=== PATIENT | male | born 1980 | race Two or more races ===

== ENCOUNTER 2023-01-09 23:21 | Emergency (ER) | payer BC ==
[~2023-01-09] VITALS: Ht 172.7 cm; Wt 86.4 kg
[2023-01-09 23:30] VITALS: BP 126/79
[2023-01-10 00:40] LABS: EOSINOPHILS % (AUTO) 0.1 % (1.0-6.0); HEMATOCRIT 45.5 % (41-53); HEMOGLOBIN 14.9 g/dL (13.5-17.5); LYMPHOCYTES # (AUTO) 0.1 K/uL (1.0-4.8); LYMPHOCYTES % (AUTO) 1.6 % (22.0-44.0); MEAN CORPUSCULAR HGB CONC 32.7 G/dL (31.0-37.0); MEAN CORPUSCULAR VOLUME 89 fL (80-100); MONOCYTES # (AUTO) 0.2 K/uL (0.1-1.0); MONOCYTES % (AUTO) 2.7 % (2.0-9.0); NEUTROPHILS # (AUTO) 8.7 K/uL (1.8-7.7); NEUTROPHILS % (AUTO) 95.6 % (40.0-70.0); PLATELET COUNT (AUTO) 182 K/uL (150-450); RED BLOOD CELL COUNT(AUTO) 5.13 MIL/uL (4.50-5.90); RED CELL DISTRIBUTION WIDTH 13.3 % (11.5-14.5)
[2023-01-10 00:46] LABS: CALCIUM, TOTAL 8.7 mg/dL (8.8-10.5); CREATININE 1.35 mg/dL (0.60-1.30); POTASSIUM 4.2 mmol/L (3.5-5.1)
[2023-01-10 00:51] LABS: ALBUMIN 3.6 g/dL (3.4-5.0); BILIRUBIN,TOTAL 0.7 mg/dL (0.1-1.0); TOTAL PROTEIN, SERUM 6.9 g/dL (6.4-8.2)
[2023-01-10] MEDS ORDERED: ONDANSETRON HCL 4 MG/2 ML VIAL IVP ONE (01:15)
[2023-01-10] MEDS ORDERED: RINGERS SOLUTION,LACTATED 1,000 ML IV ONE (01:15)
[2023-01-10] MEDS ORDERED: FAMOTIDINE 10 MG/ML 2 ML VIAL IVP ONE (01:15)
[2023-01-10] MEDS ORDERED: ONDA-104 PO (02:26)
[2023-01-10] MEDS ORDERED: FAMO20 PO (02:26)
== END 2023-01-10 03:13 | disposition home or self-care (01) ==
LOC: EMS 23:25
DX: K52.9 Noninfective gastroenteritis and colitis, unspecified (principal)
CPT/HCPCS: 99284; 96374; 96361; 96375; 80053; 83690; 85025; J3490; J2405; J7120

== ENCOUNTER 2025-08-07 16:24 | Emergency (ER) | payer BC, MEDICAID ==
[~2025-08-07] VITALS: Ht 172.7 cm; Wt 95.5 kg
[~2025-08-07 16:24] MED LIST: FAMO20 PO; ONDA-104 PO
[2025-08-07 16:31] VITALS: TEMP 98.1
[2025-08-07] MEDS ORDERED: IOHEXOL 350 MG/ML 100 ML VIAL ONE (16:55)
[2025-08-07 17:07] LABS: PLATELET COUNT (AUTO) 197 K/uL (150-450); RED BLOOD CELL COUNT(AUTO) 5.31 MIL/uL (4.50-5.90); RED CELL DISTRIBUTION WIDTH 13.4 % (11.5-14.5); WHITE BLOOD COUNT (AUTO) 8.9 K/uL (4.5-11.0)
[2025-08-07] MEDS: ACETAMINOPHEN 500 MG TABLET PO ONE (17:09)
[2025-08-07] MEDS: MECLIZINE HCL 25 MG TABLET PO ONE (17:09)
[2025-08-07] MEDS: ONDANSETRON HCL 4 MG/2 ML VIAL IVP ONE (17:09)
[2025-08-07] MEDS: FAMOTIDINE 20 MG/2 ML VIAL IVP ONE (17:10)
[2025-08-07] MEDS: SODIUM CHLORIDE 0.9% 1,000 ML IV ONE (17:10)
[2025-08-07 17:15] VITALS: BP 138/76; PULSE 81; RESP 16; O2SAT 98
[2025-08-07 17:21] LABS: CALCIUM, TOTAL 9.3 mg/dL (8.8-10.5); CREATININE 1.54 mg/dL (0.60-1.30); GLOMERULAR FILTR. RATE CALC 50.0 mL/min (>60); GLUCOSE,RANDOM 104.0 mg/dL (70-110); SODIUM SERUM 141.0 mmol/L (136-145); UREA NITROGEN, BLOOD 21.0 mg/dL (7-18)
[2025-08-07 17:27] LABS: ASPARTATE AMINOTRANSFERASE 16.0 U/L (15-37); TOTAL PROTEIN, SERUM 8.0 g/dL (6.4-8.2)
[2025-08-07 17:29] LABS: TROPONIN I-HIGH SENSITIVITY 17 ng/L (<76)
[2025-08-07 18:24] LABS: APPEARANCE,URINE CLEAR (CLEAR); GLUCOSE, URINE (UA) NEGATIVE (NEGATIVE); LEUKOCYTE ESTERASE ,URINE NEGATIVE (NEGATIVE); NITRATE,URINE NEGATIVE (NEGATIVE); OCCULT BLOOD,URINE MODERATE (NEGATIVE); SPECIFIC GRAVITIY, URINE 1.023 (1.003-1.030)
[2025-08-07] MEDS ORDERED: ONDA-104 PO (19:21)
[2025-08-07] MEDS ORDERED: MECL-302 PO (19:21)
== END 2025-08-07 20:09 | disposition home or self-care (01) ==
LOC: EMS 16:27
DX: K52.9 Noninfective gastroenteritis and colitis, unspecified (principal); R11.2 Nausea with vomiting, unspecified; R42 Dizziness and giddiness; Z79.899 Other long term (current) drug therapy
CPT/HCPCS: 99285; 70450; 96374; 96361; 96375; 80048; 80076; 81001; 83690; 83735; 84484; 85025; 36415; 74177; 93005; Q9967; J3490; J2405; J7030